=== PATIENT | male | born 1955 | race Caucasian/White ===

== ENCOUNTER 2024-06-26 09:46 | Day surgery (SDC) | payer BC ==
[2024-06-20 14:16] VITALS: BMI 29.2
[2024-06-26 12:40] VITALS: BP 128/76; PULSE 77; RESP 18; TEMP 97
== END 2024-06-26 13:02 | disposition home or self-care (01) ==
LOC: FASU-ENDO 09:46
PROVIDERS: ATTEND Internal Medicine Gastroenterology
PROC: 0DBL8ZX Excision of Transverse Colon, Via Natural or Artificial Opening Endoscopic, Diagnostic (ICD-10-PCS; principal; 2024-06-26 11:12)
DX: Z12.11 Encounter for screening for malignant neoplasm of colon (principal); D12.3 Benign neoplasm of transverse colon; K57.30 Diverticulosis of large intestine without perforation or abscess without bleeding; K64.1 Second degree hemorrhoids
CPT/HCPCS: 82962; 88305-TC